=== PATIENT | male | born 1965 | race Caucasian/White ===

== ENCOUNTER → 2017-09-25 | Day surgery (SDC) | payer BC ==
[~2017-09-25] MED LIST: ANTACI2 OR; CIPRO500 MG OR; CRESTOR10 MG PO; FLOXIN OTIC0.3 % OT; HYDROCHLOROT12.5 MG PO; LORTAB 5 OR; METOPROLOL50 M1 PO; MULIT-VITAMI OR; NAPROSYN500 MG PO; OFLOXACIN0.31 OP; ULTRAM50 M1 PO; ZPAK PO
[2017-09-25 11:35] VITALS: BP 121/77
== END | disposition home or self-care (01) | DRG 951 ==
LOC: ENDO 07:45
PROVIDERS: ATTEND Surgery
PROC: 0DJD8ZZ Inspection of Lower Intestinal Tract, Via Natural or Artificial Opening Endoscopic (ICD-10-PCS; principal; 2017-09-25)
DX: Z12.11 Encounter for screening for malignant neoplasm of colon (principal); K57.30 Diverticulosis of large intestine without perforation or abscess without bleeding